=== PATIENT | male | born 1975 | race Native Hawaiian/Other Pacific Islander ===

== ENCOUNTER 2019-03-01 21:45 | Emergency (ER) | payer BC ==
[~2019-03-01] VITALS: Ht 177.8 cm; Wt 104.3 kg
[2019-03-01 22:30] LABS: POTASSIUM 3.8 mmol/L (3.6-5.2); SODIUM 142 mmol/L (136-145)
[2019-03-01 22:43] LABS: PARTIAL THROMBOPLASTIN TIME 23.8 SECONDS (24.5-33.6); PLATELET COUNT 263 K/uL (142-355)
[2019-03-02 06:09] VITALS: BP 135/91; TEMP 98.2
== END 2019-03-02 07:48 | disposition other institution (70) ==
LOC: ED 21:45
PROVIDERS: Hospitalist
DX: R45.851 Suicidal ideations (principal); F32.89 Other specified depressive episodes; R00.1 Bradycardia, unspecified
CPT/HCPCS: 36415; 80053; 80307; 80320; 80329; 81000; 82550; 83880; 84484; 85027; 85610; 85730; 93005; 99285

== ENCOUNTER 2020-03-01 05:48 | Emergency (ER) | payer BC ==
[~2020-03-01] VITALS: Ht 177.8 cm; Wt 113.4 kg
[2020-03-01 06:10] VITALS: TEMP 98.9
[2020-03-01 06:22] LABS: PLATELET COUNT 277 K/uL (142-355)
[2020-03-01 06:31] LABS: POTASSIUM 3.3 mmol/L (3.6-5.2); SODIUM 136 mmol/L (136-145)
[2020-03-01 10:30] VITALS: BP 140/76
== END 2020-03-01 10:31 | disposition home or self-care (01) ==
LOC: ED 05:48
PROVIDERS: Emergency Medicine
DX: R07.89 Other chest pain (principal); K21.9 Gastro-esophageal reflux disease without esophagitis; E86.0 Dehydration
CPT/HCPCS: 80053; 82550; 82553; 84484; 85027; 85379; 93005; 96360; 96375; 99284; J2270; J2405